=== PATIENT | female | born 1995 | race African-American/Black ===

== ENCOUNTER 2024-08-10 23:01 | Emergency (ER) | payer MEDICAID ==
[~2024-08-10] VITALS: Ht 167.6 cm; Wt 127.4 kg
[2024-08-10 23:32] VITALS: O2SAT 98
[2024-08-11 03:15] VITALS: BP 126/86; PULSE 77; RESP 18; TEMP 36.66960; O2SAT 100
== END 2024-08-11 03:40 | disposition home or self-care (01) ==
LOC: ER 23:54
DX: R00.2 Palpitations (principal); R06.02 Shortness of breath; Z88.0 Allergy status to penicillin
CPT/HCPCS: 71045; 81025; 93005; 99283